=== PATIENT | male | born 1930 | race African-American/Black ===

== ENCOUNTER 2018-05-05 13:47 | Emergency (ER) | payer MEDICARE ==
[~2018-05-05] VITALS: Ht 177.8 cm; Wt 80.5 kg
[2018-05-05 13:52] VITALS: BP 153/72; PULSE 92; TEMP 98.7
[2018-05-05] MEDS ORDERED: VOLTAREN 75 DR75 MG PO (15:55)
[2018-05-05] MEDS ORDERED: PRAVACHOL80 MG PO (15:55)
[2018-05-05] MEDS ORDERED: ACCUPRIL20TAB PO (15:55)
== END 2018-05-05 17:15 | disposition home or self-care (01) ==
LOC: COL.ER 13:47
DX: M84.432A Pathological fracture, left ulna, initial encounter for fracture (principal); E78.5 Hyperlipidemia, unspecified; I10 Essential (primary) hypertension; I25.2 Old myocardial infarction

== ENCOUNTER 2018-07-31 10:58 | Emergency (ER) | payer MEDICARE ==
[~2018-07-31] VITALS: Ht 177.8 cm; Wt 90.9 kg
[~2018-07-31 10:58] MED LIST: ACCUPRIL20TAB PO; CARDURA4 MG PO; LOZOL 2.5M2.5 MG/TAB PO; PRAVACHOL80 MG PO; VOLTAREN 75 DR75 MG PO
[2018-07-31 11:03] VITALS: TEMP 97.1
[2018-07-31 11:32] LABS: BASO % 0.2 % (0.0-2.0); EOS % 0.4 % (0-4.0); GRAN # 7.5 (1.4-6.5); GRAN % 81.7 % (42.2-75.2); LYMPH # 1.1 (1.2-3.4); LYMPH % 11.5 % (20.0-51.0); MEAN CELL VOLUME 87 fl (80.0-100.0); MEAN CORPUSCULAR HEMOGLOBIN 27 pg (27.0-31.0); MEAN CORPUSCULAR HGB CONC 31 g/dl (33.0-37.0); MEAN PLATELET VOLUME 11.5 fl (7.4-10.4); MONO # 0.5 (0.1-0.6); MONO % 5.9 % (1.7-9.3); PLATELET COUNT 232 K/mm3 (130-400); RED BLOOD COUNT 4.14 M/mm3 (4.20-5.60); REDCELL DISTRIBUTION WIDTH-CV 14.7 % (11.5-14.5)
[2018-07-31 11:33] LABS: HEMATOCRIT 35.9 % (42.0-52.0)
[2018-07-31 11:53] LABS: ERYTHROCYTE SEDIMENTATION RATE 101 mm/hr (0-30)
[2018-07-31 11:56] LABS: CALCIUM 8.7 mg/dL (8.4-10.2); CREATININE, serum 1.16 mg/dL (0.66-1.25); POTASSIUM 3.6 mmol/L (3.4-5.0)
[2018-07-31 12:13] LABS: C-REACTIVE PROTEIN 17.5 mg/dL (0.0-0.9)
[2018-07-31] MEDS ORDERED: CLEOCIN HCL300 MG PO (15:24)
[2018-07-31 15:50] VITALS: BP 140/68; PULSE 84
== END 2018-07-31 15:50 | disposition home or self-care (01) ==
LOC: COL.ER 10:58
PROVIDERS: Emergency Medicine
DX: R22.42 Localized swelling, mass and lump, left lower limb (principal); I10 Essential (primary) hypertension; E11.9 Type 2 diabetes mellitus without complications; I25.10 Atherosclerotic heart disease of native coronary artery without angina pectoris; N40.0 Benign prostatic hyperplasia without lower urinary tract symptoms; Z87.891 Personal history of nicotine dependence

== ENCOUNTER 2021-09-05 17:24 | Emergency (ER) | payer MEDICARE ==
[~2021-09-05] VITALS: Ht 177.8 cm; Wt 93.2 kg
[~2021-09-05 17:24] MED LIST changes: +CLEOCIN HCL300 MG PO
[2021-09-05 17:54] VITALS: TEMP 98.8
[2021-09-05 19:02] LABS: COLLECTION METHOD CLEAN CATCH
[2021-09-05 19:13] LABS: PH 6 (5-8); SQUAMOUS EPITHELIAL None Seen /hpf; URINE APPEARANCE Cloudy; URINE BACTERIA None Seen /hpf; URINE BILIRUBIN Negative (NEGATIVE); URINE BLOOD 3+ (NEGATIVE); URINE COLOR Red; URINE GLUCOSE Negative (NEGATIVE); URINE KETONE Negative (NEGATIVE); URINE LEUKOCYTE ESTERASE 2+ (NEGATIVE); URINE NITRATE Negative (NEGATIVE); URINE PROTEIN(semi-quant) 2+ (NEGATIVE); URINE RBC >50 /hpf; URINE UROBILINOGEN Negative (NEGATIVE)
[2021-09-05 19:19] LABS: BASO % 0.2 % (0.0-2.0); EOS # 0.1 K/mm3 (0.0-0.7); GRAN # 6.9 K/mm3 (1.4-6.5); GRAN % 76.7 % (42.2-75.2); HEMATOCRIT 43.3 % (42.0-52.0); HEMOGLOBIN 13.3 g/dl (13.5-18.0); LYMPH # 1.6 K/mm3 (1.2-3.4); LYMPH % 17.6 % (20.0-51.0); MEAN CELL VOLUME 87 fl (80.0-100.0); MEAN CORPUSCULAR HEMOGLOBIN 27 pg (27.0-31.0); MEAN CORPUSCULAR HGB CONC 31 g/dl (33.0-37.0); MEAN PLATELET VOLUME 10.9 fl (7.4-10.4); MONO # 0.4 K/mm3 (0.1-0.6); MONO % 4.2 % (1.7-9.3); PLATELET COUNT 311 K/mm3 (130-400); RED BLOOD COUNT 4.96 M/mm3 (4.20-5.60); REDCELL DISTRIBUTION WIDTH-CV 13.1 % (11.5-14.5)
[2021-09-05 19:33] LABS: ALBUMIN 3.6 gm/dL (3.4-4.8); BILIRUBIN,TOTAL 0.5 mg/dL (0.2-1.2); CALCIUM 9.1 mg/dL (8.4-10.2); CREATININE, serum 1.25 mg/dL (0.72-1.25); POTASSIUM 4.3 mmol/L (3.5-4.5); TOTAL PROTEIN 8.2 gm/dL (6.2-8.1)
[2021-09-05 20:07] VITALS: BP 183/86; PULSE 78
[2021-09-05] MEDS ORDERED: CIPRO 500MG TA500 MG PO (20:22)
== END 2021-09-05 20:07 | disposition home or self-care (01) ==
LOC: COL.ER 17:24
PROVIDERS: Nurse Practitioner
DX: N17.9 Acute kidney failure, unspecified (principal); N39.0 Urinary tract infection, site not specified; R22.42 Localized swelling, mass and lump, left lower limb; I10 Essential (primary) hypertension; I25.10 Atherosclerotic heart disease of native coronary artery without angina pectoris; F03.90 Unspecified dementia, unspecified severity, without behavioral disturbance, psychotic disturbance, mood disturbance, and anxiety; Z79.899 Other long term (current) drug therapy

== ENCOUNTER 2021-09-17 18:45 | Emergency (ER) | payer MEDICARE ==
[~2021-09-17] VITALS: Ht 170.2 cm; Wt 93.2 kg
[~2021-09-17 18:45] MED LIST changes: +CIPRO 500MG TA500 MG PO
[2021-09-17 19:26] VITALS: TEMP 99.2
[2021-09-17 20:05] LABS: BASO % 0.3 % (0.0-2.0); EOS # 0.1 K/mm3 (0.0-0.7); EOS % 0.9 % (0-4.0); GRAN # 5.8 K/mm3 (1.4-6.5); GRAN % 76.1 % (42.2-75.2); HEMATOCRIT 41.9 % (42.0-52.0); LYMPH # 1.2 K/mm3 (1.2-3.4); LYMPH % 15.8 % (20.0-51.0); MEAN CELL VOLUME 87 fl (80.0-100.0); MEAN CORPUSCULAR HEMOGLOBIN 27 pg (27.0-31.0); MEAN CORPUSCULAR HGB CONC 31 g/dl (33.0-37.0); MONO # 0.5 K/mm3 (0.1-0.6); MONO % 6.6 % (1.7-9.3); PLATELET COUNT 283 K/mm3 (130-400); RED BLOOD COUNT 4.83 M/mm3 (4.20-5.60); REDCELL DISTRIBUTION WIDTH-CV 13.2 % (11.5-14.5)
[2021-09-17 20:16] LABS: COLLECTION METHOD CLEAN CATCH
[2021-09-17 20:23] LABS: ALBUMIN 3.2 gm/dL (3.4-4.8); CALCIUM 9.7 mg/dL (8.4-10.2); CREATININE, serum 1.2 mg/dL (0.72-1.25); POTASSIUM 3.9 mmol/L (3.5-4.5)
[2021-09-17 20:34] LABS: MUCOUS Present (NOT PRESENT); PH 6 (5-8); URINE APPEARANCE Hazy (CLEAR/HAZY); URINE BACTERIA Rare (NONE SEEN); URINE BILIRUBIN Negative (NEGATIVE); URINE BLOOD Negative (NEGATIVE); URINE COLOR Yellow (YELLOW); URINE GLUCOSE Negative (NEGATIVE); URINE KETONE Negative (NEGATIVE); URINE LEUKOCYTE ESTERASE 2+ (NEGATIVE); URINE NITRATE Negative (NEGATIVE); URINE PROTEIN(semi-quant) Negative (NEGATIVE); URINE RBC 20-50 /hpf (0-2); URINE UROBILINOGEN Negative (NEGATIVE)
[2021-09-17] MEDS ORDERED: DOXYCYCLINE 10100 MG PO (21:18)
[2021-09-17 21:33] VITALS: BP 162/104; PULSE 83
== END 2021-09-17 21:33 | disposition home or self-care (01) ==
LOC: COL.ER 18:45
PROVIDERS: Nurse Practitioner
DX: S63.501A Unspecified sprain of right wrist, initial encounter (principal); N39.0 Urinary tract infection, site not specified; I10 Essential (primary) hypertension; F03.90 Unspecified dementia, unspecified severity, without behavioral disturbance, psychotic disturbance, mood disturbance, and anxiety; Z79.899 Other long term (current) drug therapy; W19.XXXA Unspecified fall, initial encounter

== ENCOUNTER 2021-10-21 00:22 | Inpatient (IN) | payer MEDICARE ==
[~2021-10-21] VITALS: Ht 177.8 cm; Wt 86.2 kg
[~2021-10-21 00:22] MED LIST changes: +DOXYCYCLINE 10100 MG PO
[2021-10-21 01:03] LABS: GRAN # 5.6 K/mm3 (1.4-6.5); GRAN % 82.2 % (42.2-75.2); HEMATOCRIT 47.3 % (42.0-52.0); HEMOGLOBIN 14.8 g/dl (13.5-18.0); LYMPH # 0.7 K/mm3 (1.2-3.4); LYMPH % 10.1 % (20.0-51.0); MEAN CELL VOLUME 88 fl (80.0-100.0); MEAN CORPUSCULAR HEMOGLOBIN 27 pg (27-31); MEAN CORPUSCULAR HGB CONC 31 g/dl (33.0-37.0); MEAN PLATELET VOLUME 11.9 fl (7.4-10.4); MONO # 0.5 K/mm3 (0.1-0.6); MONO % 7.6 % (1.7-9.3); PLATELET COUNT 176 K/mm3 (130-400)
[2021-10-21 01:12] LABS: INR 1.1 (0.8-3.0); PROTHROMBIN TIME 12.2 SECONDS (9.7-12.8)
[2021-10-21 01:15] LABS: PARTIAL THROMBOPLASTIN TIME 31.3 SECONDS (26.0-37.0)
[2021-10-21 01:20] LABS: ALBUMIN 3.7 gm/dL (3.4-4.8); CREATININE, serum 1.22 mg/dL (0.72-1.25); POTASSIUM 4.2 mmol/L (3.5-4.5)
[2021-10-21 01:30] LABS: BILIRUBIN,TOTAL 1.2 mg/dL (0.2-1.2)
[2021-10-21 01:32] LABS: TROPONIN-I 0.034 ng/mL (0.00-0.033)
[2021-10-21] MEDS ORDERED: NORVASC 5MG5 MG/TAB PO (04:19)
[2021-10-21 05:11] LABS: COLLECTION METHOD CLEAN CATCH
[2021-10-21 05:20] LABS: C-REACTIVE PROTEIN 1.83 mg/dL (0.00-0.50)
[2021-10-21 05:28] LABS: MUCOUS Present (NOT PRESENT); PH 5 (5-8); URINE APPEARANCE Hazy (CLEAR/HAZY); URINE BACTERIA Rare /hpf (NONE SEEN); URINE BILIRUBIN Negative (NEGATIVE); URINE BLOOD 2+ (NEGATIVE); URINE COLOR Yellow (YELLOW); URINE GLUCOSE Negative (NEGATIVE); URINE KETONE Trace (NEGATIVE); URINE LEUKOCYTE ESTERASE Negative (NEGATIVE); URINE NITRATE Negative (NEGATIVE); URINE PROTEIN(semi-quant) 1+ (NEGATIVE); URINE RBC >50 /hpf (0-2); URINE UROBILINOGEN >=4.0 (NEGATIVE)
[2021-10-21 11:00] VITALS: BP 118/67; PULSE 88; TEMP 97.8
--- NOTE | 2021-10-21 12:33 | NUR ---
UPDATED PATIENT'S SON AND DAUGHTER ON CURRENT PATIENT STATUS.
[2021-10-21 12:46] VITALS: BP 118/67; PULSE 88; TEMP 97.8
--- NOTE | 2021-10-21 13:04 | NUR ---
CALLED TO VERIFY CONSULT FOR PATIENT SINCE BEING ADMITTED TO FLOOR.
[2021-10-21 13:42] VITALS: BP 114/68; PULSE 88; TEMP 97.8
--- NOTE | 2021-10-21 15:26 | NUR ---
Sheeter Helper contacted patient's daughter,
--- NOTE | 2021-10-21 15:37 | NUR ---
Glass Furnace Operator contacted patient's daughter, Keiry (ph#[phone]) to discuss discharge planning as patient has dementia and is in isolation for [facility]. Patient is being admitted observation status. Keiry advised that patient lives with her and she is his primary caregiver. Patient sees Dr. Aguilar for primary care and obtains his medications from [facility]. Keiry advised patient will use a cane for ambulation when reminded. Patient has been mostly independent with ADLS but is sometimes incontinent. Keiry stated she had patient brought to ED as he was not able to follow any commands which is not normal for him. Keiry states she can no longer provide the care that patient needs at home and they are wanting patient placed for rehab, but then fci care. 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 Keiry states she has been looking into [facility] and [facility] in [place]. Patient's sister is currently at [facility]. MANSOOR advised that referrals for rehab would be sent locally and that we would also send one to [facility]. MANSOOR gave referral to [facility], [facility], and [facility]. MANSOOR also submitted clinicals to [facility] for prior authorization. MANSOOR collaborated with Hospitalist who requested referral be sent to [facility]. MANSOOR contacted Ynes at [facility] and left referral on her voicemail. MANSOOR attempted to follow up twice with patient's daughter Keiry on Advance Directives and fci care payer source with no sucess. MANSOOR contacted MANSOOR Samuels at Dr. Aguilar's office to request Advance Directives however they have nothing on file. Discharge Plan: pending referrals at [facility] and [facility]. MANSOOR also gave referral to [facility].
--- NOTE | 2021-10-21 16:04 | NUR ---
CALLED CONSULT TO UROLOGY.
--- NOTE | 2021-10-21 16:12 | NUR ---
CALLED CONSULT TO INFECTIOUS DISEASE.
[2021-10-21 19:13] VITALS: BP 136/69; PULSE 87; TEMP 97.8
[2021-10-21 20:28] VITALS: BP 121/58; PULSE 92; TEMP 97.7
--- NOTE | 2021-10-21 21:30 | NUR ---
Patient is sleeping in bed, took some time to wake hip up. Alert to self, disoriented, able to follow simple instructions but unable to answer questions coherently. At , Tele in place, NSR. Able to take medications. Assessment completed. No further needs at this time. Call light within reach.
[2021-10-22] VITALS (7 sets, daily range): BP systolic 123–148; BP diastolic 54–66; PULSE 81–93; TEMP 97.6–101.4
[2021-10-22 05:51] LABS: BASO % 0.2 % (0.0-2.0); GRAN # 3.9 K/mm3 (1.4-6.5); GRAN % 77.4 % (42.2-75.2); HEMOGLOBIN 13.4 g/dl (13.5-18.0); LYMPH # 0.8 K/mm3 (1.2-3.4); LYMPH % 16.4 % (20.0-51.0); MEAN CELL VOLUME 85 fl (80.0-100.0); MEAN CORPUSCULAR HEMOGLOBIN 27 pg (27-31); MEAN CORPUSCULAR HGB CONC 32 g/dl (33.0-37.0); MEAN PLATELET VOLUME 12.3 fl (7.4-10.4); MONO # 0.3 K/mm3 (0.1-0.6); MONO % 5.8 % (1.7-9.3); PLATELET COUNT 177 K/mm3 (130-400); RED BLOOD COUNT 4.97 M/mm3 (4.20-5.60)
--- NOTE | 2021-10-22 05:54 | NUR ---
Patient has had a calm night, continues at RA, NSR, LR started at 75ml/hr. Urine output WNL. Continues with weakness. Has been in bed all night. Shift report will be given to dayshift nurse.
[2021-10-22 06:06] LABS: ALANINE AMINOTRANSFERASE 15 U/L (0-55); ALBUMIN 3.1 gm/dL (3.4-4.8); ALKALINE PHOSPHATASE 92 U/L (40-150); ANION GAP 12 mmol/L (7-16); AST,SGOT 35 U/L (5-34); BILIRUBIN,TOTAL 0.9 mg/dL (0.2-1.2); BLOOD UREA NITROGEN 38 mg/dL (8-26); CALCIUM 8.3 mg/dL (8.4-10.2); CARBON DIOXIDE 23 mmol/L (23-31); CHLORIDE 105 mmol/L (98-107); CREATININE, serum 1.77 mg/dL (0.72-1.25); GLUCOSE 108 mg/dL (70-99); POTASSIUM 4.4 mmol/L (3.5-4.5); SODIUM 140 mmol/L (136-145)
[2021-10-22 06:28] LABS: TROPONIN-I < 0.010 ng/mL (0.00-0.033)
--- NOTE | 2021-10-22 10:28 | NUR ---
PT SITTING UP IN BED EATING BREAKFAST. MORNING MEDICATIONS GIVEN. SHIFT ASSESSMENT COMPLETED. PT DOES NOT FOLLOW COMMANDS OR RESPOND TO MY QUESTIONS. BED ALARMS ON. LR RUNNING AT 75ML/HR. WILL CONTINUE TO MONITOR.
--- NOTE | 2021-10-22 20:00 | NUR ---
Patient is lying in bed, alert but disoriented. No signs of pain. Tele in place, NSR. Catheter mcdonald in place, security device in leg broken, was changed. Clear yellow output. Continues at RA but has some coughing. Patient refused to take night medicaionts. LR running at 75 ml/hr. Assessment completed, no other needs at this time. Bed alarm on.
--- NOTE | 2021-10-22 22:15 | NUR ---
Pt has some fever, Tylenol suppository provided. Patient combative. Now resting.
[2021-10-23] VITALS (7 sets, daily range): BP systolic 97–154; BP diastolic 31–75; PULSE 72–89; TEMP 97.9–100.8
--- NOTE | 2021-10-23 03:00 | NUR ---
Pt removed his IV, change of linens, gown and hygiene provided. Pt combative and punching. Pt was oriented. Now resting.
--- NOTE | 2021-10-23 06:25 | NUR ---
Patient has had an agitated night, right now he is sleeping. Continues at RA, confused, combative for any intervention that requres to move him. Report will be given to day RN.
[2021-10-23 08:15] LABS: CALCIUM 8.3 mg/dL (8.4-10.2); CREATININE, serum 1.18 mg/dL (0.72-1.25)
--- NOTE | 2021-10-23 10:54 | NUR ---
PT RESTING IN BED. MORNING MEDICATIONS GIVEN. SHIFT ASSESSMENT COMPLETED. PT DOES NOT FOLLOW COMMANDS OR RESPOND TO MOST QUESTIONS. REMAINS OF ROOM AIR. LR RUNNING AT 75ML/HR. WILL CONTINUE TO MONITOR.
--- NOTE | 2021-10-23 12:07 | NUR ---
JEROME update: Checked in with referrals for status. [facility] can not take client unitl he is post positive CV test at day ten. Same for [facility] admission. Bob Shrestha in [place] did not answer, jerome left message to call back for patient return status. Awating answer from [place].
--- NOTE | 2021-10-23 20:30 | NUR ---
Patient is reting in bed, food intact. Assisted to feed him, ate 75% including nutritional supplement. Took his medications. Fever. Tylenol provided. Contiuous at RA, some sporadic cough. Tele in place, NSR. LR running at 50ml/hr. Assessment completed. No further needs at this time. Bed alarm on.
[2021-10-24 04:49] VITALS: BP 126/42; PULSE 76; TEMP 97.8
--- NOTE | 2021-10-24 05:54 | NUR ---
Pt has been cooperative taking his medications and receiving care. Had an episode of fever, Tylenol provided. Continues with LR 50 ML/HR. Has been resting and sleeping with not problems. Bed alarm on. Report will be given do day RN.
[2021-10-24 07:59] VITALS: BP 141/49; PULSE 78; TEMP 98.9
--- NOTE | 2021-10-24 09:55 | NUR ---
PT RESTING IN BED. MORNING MEDICATIONS GIVEN. SHIFT ASSESSMENT COMPLETED. PT REMAINS ON OXYGEN. PEREZ CATHETER DRAINING WELL. MITS IN PLACE. LR RUNNING AT 50ML/HR. PT DOES NOT RESPOND TO QUESTIONS OR FOLLOW COMMANDS. PLEASANT MOOD. WILL CONTINUE TO MONITOR.
[2021-10-24 11:56] VITALS: BP 96/71; PULSE 83; TEMP 97.9
[2021-10-24 15:59] VITALS: BP 138/54; PULSE 82; TEMP 99.2
--- NOTE | 2021-10-24 19:57 | NUR ---
Patient laying in bed, awake and alert. Patient not orientd. Not following commands or answering questions. Patient on room air. No apparent distress noted. LR running at 50ml/hr per MAR. Mits on both hands. Patient occasionaly trying to pull off mits. Patient refused evening meds. Patient not opening his mouth and pushing away medications. Patient refused to be repositioned. Call light in reach. Bed alarms on. Will continue to monitor.
[2021-10-24 20:20] VITALS: BP 155/82; PULSE 97; TEMP 101.7
[2021-10-24 23:45] VITALS: BP 145/67; PULSE 93; TEMP 100.8
[2021-10-25 04:08] VITALS: BP 143/89; PULSE 87; TEMP 100.4
--- NOTE | 2021-10-25 04:13 | NUR ---
Patient had high temp of 101.7F and 100.8 F last night. PRN Tylenol suppository given around 9pm and 3 am this morning. Temp down to 100.4 F around 4am. Patient favors to sleep on his left side. Repositioned patient frequently, but patient keeps turning to his left side with his body side ways and his head on the edge of bed. Bed on the lowest setting with bed alarms on. Fall precaution maintained. Will continue to monitor.
[2021-10-25 07:26] LABS: CALCIUM 8.2 mg/dL (8.4-10.2); CREATININE, serum 1.09 mg/dL (0.72-1.25); MAGNESIUM 1.9 mg/dL (1.6-2.6)
[2021-10-25 08:15] VITALS: BP 147/49; PULSE 83; TEMP 100.4; TEMP 98.3
--- NOTE | 2021-10-25 10:39 | NUR ---
Shift assessment performed. Scheduled medications refused. Patient was not willing to open up mouth. Catheter in place. Securement device in use, no kinks in tubing. No s/s of pain, discomfort, SOA, or further needs at this time. VSS. Patient drowsy and confused. Call light in reach. Fall percuations in place.
[2021-10-25 11:40] VITALS: BP 152/67; PULSE 88; TEMP 101.1
--- NOTE | 2021-10-25 14:50 | NUR ---
The patient spiked a fever today and was upgraded to inpatient status. SW notified and faxed updates to [facility] and [facility].
[2021-10-25 15:22] VITALS: BP 145/66; PULSE 57; TEMP 101.3
[2021-10-25 17:58] VITALS: TEMP 100.7
--- NOTE | 2021-10-25 17:59 | NUR ---
Patient has had an ok day. Tylenol suppository given this shift for temp of 101.3. PO intake has been inadequate this shift. Patient refuses to open mouth/accept food. All other VSS. Patient has been sleeping a majority of the day and is not oriented. Call light in reach. Fall percautions in place.
[2021-10-25 20:48] VITALS: BP 131/71; PULSE 80; TEMP 98.1
--- NOTE | 2021-10-25 23:09 | NUR ---
Patient laying in bed, drowsy and confused. Patient not following commands or answering questions. Patient not opening mouth for medications. LR currently running at 50ml/hr via left forearm IV site. Hodgson catheter patent and draning well. Patient has mits on. Call light in reach. Bed alarms on. Fall precaution maintained. Will continue to monitor.
[2021-10-26] VITALS (8 sets, daily range): BP systolic 113–154; BP diastolic 56–81; PULSE 70–87; TEMP 97.7–102.8
[2021-10-26 08:19] LABS: GRAN # 6.7 K/mm3 (1.4-6.5); HEMATOCRIT 38.2 % (42.0-52.0); HEMOGLOBIN 11.9 g/dl (13.5-18.0); LYMPH # 0.8 K/mm3 (1.2-3.4); LYMPH % 9.7 % (20.0-51.0); MEAN CELL VOLUME 86 fl (80.0-100.0); MEAN CORPUSCULAR HEMOGLOBIN 27 pg (27-31); MEAN CORPUSCULAR HGB CONC 31 g/dl (33.0-37.0); MEAN PLATELET VOLUME 11.6 fl (7.4-10.4); MONO # 0.3 K/mm3 (0.1-0.6); PLATELET COUNT 189 K/mm3 (130-400); RED BLOOD COUNT 4.42 M/mm3 (4.20-5.60); REDCELL DISTRIBUTION WIDTH-CV 13.7 % (11.5-14.5)
[2021-10-26 08:45] LABS: CALCIUM 8.5 mg/dL (8.4-10.2); CREATININE, serum 1.11 mg/dL (0.72-1.25); POTASSIUM 4.1 mmol/L (3.5-4.5)
--- NOTE | 2021-10-26 09:50 | NUR ---
Radha, at [facility], reports that they can continue to follow the patient, but would need to see some more updates closer to discharge and his post COVID status, due to his PNA and behaviors. They want to make sure they can manage his care.
--- NOTE | 2021-10-26 11:18 | NUR ---
Scheduled medications given. Shift assessment performed. Patient currently requiring 2L of O2 via nasal cannula. Hodgson catheter in place. Securement device in use, no kinks in tubing. HELPER STEEL FABRICATION reported to this RN that patient had a temp of 102.8. Blankets taken off of patient, ice packs placed in groin and axillary regions, tylenol suppository given. At temp recheck, temp had decreased to 101.2. Will continue to monitor. All other VSS. Patient alert, but very confused and is not able to follow commands. No s/s of pain, discomfort, SOA, or further needs at this time. Call light in reach. Fall percautions in place.
--- NOTE | 2021-10-26 13:21 | NUR ---
MANSOOR faxed updates to [facility] and [facility]. Darren RICHARDS is full at this time. Graeme, at [facility], reports that they can submit for auth to the patient's insurance on inpatient day three. MANSOOR attempted to contact the patient's daughter, Keiry, to update. MANSOOR left her a voicemail. *Discharge plan: SNF*
--- NOTE | 2021-10-26 17:57 | NUR ---
Patient has had an ok day. Currently requiring 2L of O2 via nasal cannula. Temp broke and is now reading 98.6. Patient more alert than earlier in shift. Continues to not be oriented. Patient denies any pain, discomfort, SOA, or further needs at this time. Call light in reach. VSS. Fall percautions in place.
--- NOTE | 2021-10-26 20:30 | NUR ---
Patient is resting in bed, resting in his left side, alert and oriented to self. Tele pin place NSR, 2L O2 NC. Cath mcdonald in place. Mittens in hands. Assessment completed, no other needs at this time, bed alarm on.
[2021-10-27 03:53] VITALS: BP 132/68; PULSE 74; TEMP 98.2
--- NOTE | 2021-10-27 06:36 | NUR ---
Patient was cooperative and not combative this night. He continues receiving LR at 50ml/hr and antibiotics. Report will be given to day RN.
[2021-10-27 07:23] VITALS: BP 128/53; PULSE 68; TEMP 98.4
[2021-10-27 09:09] LABS: BASO % 0.1 % (0.0-2.0); GRAN # 8.4 K/mm3 (1.4-6.5); GRAN % 87.3 % (42.2-75.2); HEMATOCRIT 38.7 % (42.0-52.0); HEMOGLOBIN 11.9 g/dl (13.5-18.0); LYMPH # 0.8 K/mm3 (1.2-3.4); MEAN CELL VOLUME 87 fl (80.0-100.0); MEAN CORPUSCULAR HEMOGLOBIN 27 pg (27-31); MEAN CORPUSCULAR HGB CONC 31 g/dl (33.0-37.0); MEAN PLATELET VOLUME 11.3 fl (7.4-10.4); MONO # 0.4 K/mm3 (0.1-0.6); MONO % 4.1 % (1.7-9.3); PLATELET COUNT 158 K/mm3 (130-400); RED BLOOD COUNT 4.45 M/mm3 (4.20-5.60); REDCELL DISTRIBUTION WIDTH-CV 13.9 % (11.5-14.5)
[2021-10-27 09:34] LABS: CALCIUM 8.4 mg/dL (8.4-10.2); CREATININE, serum 1.19 mg/dL (0.72-1.25); POTASSIUM 4.2 mmol/L (3.5-4.5)
[2021-10-27 11:03] VITALS: BP 119/61; PULSE 71; TEMP 99.2
--- NOTE | 2021-10-27 11:34 | NUR ---
MANSOOR staffed with the PA. The patient may be able to discharge in the next 24-48 hours. SW notified and faxed updates to [facility] and [facility]. The patient's records were submitted to [facility] for auth. MANSOOR contacted the patient's daughter, Keiry, and updated her on the above. Keiry is agreeable to the patient going to [facility]. *Discharge plan: SNF, awaiting insurance auth*
[2021-10-27 15:31] VITALS: BP 106/53; PULSE 74; TEMP 99
--- NOTE | 2021-10-27 18:00 | NUR ---
Shift assessment performed. Scheduled medications given. Patient is alert today, but is only oriented to self. VSS. Currenlty not requiring any O2. Patient had a good appetite today and ate 100% of his lunch and 50% of his supper. Hodgson catheter in place. No kinks in tubing. Urine is sharri in color with sediment present. Provider aware. No s/s of pain, discomfort, SOA, or further needs at this time. Call light in reach. Fall percautions in place.
--- NOTE | 2021-10-27 18:00 | NUR ---
Scheduled medications given. Shift assessment perfomre.
[2021-10-27 20:27] VITALS: BP 162/77; PULSE 78; TEMP 98.3
--- NOTE | 2021-10-27 22:00 | NUR ---
Patient is resting in bed, alert but disoriented. VSS, reciving LR 50ML/HR. Telemetry in place NSR. RA no SOB. Assessment completed, medications provided. Hygiene provided, since linens dirty with BM. No other needs at this time. Call light within reach.
[2021-10-27 23:47] VITALS: BP 152/80; PULSE 38; TEMP 98.5
[2021-10-28] VITALS (7 sets, daily range): BP systolic 112–157; BP diastolic 47–96; PULSE 58–97; TEMP 97.6–98.4
--- NOTE | 2021-10-28 06:22 | NUR ---
Pt had an incontineng BM at night, hygiene and change of linene and gown provided. Pt continuous at RA. No other issues along the night. Report will be given to day RN.
--- NOTE | 2021-10-28 07:49 | NUR ---
REPORT RECEIVED FROM TIMOTHY RIBERA AT THIS TIME.PT DENIES ANY NEEDS A THIS TIME
--- NOTE | 2021-10-28 13:22 | NUR ---
A [facility] member service representative left this SW a voicemail. The rep reports that they approved a SNF stay at [facility] for three days, from 10/27/21-10/29/21. Auth ID#[id number]. Ref#[id number]. MANSOOR notified and provided this information to Graeme at [facility]. [facility] is still working with the [facility] to determine when and if they can take the patient before the 10 days of isolation. MANSOOR staffed with the PA. The patient was started on Remdesvir today and not ready to discharge yet. MANSOOR faxed updates to [facility].
--- NOTE | 2021-10-28 21:30 | NUR ---
Patient is resting in bed, alert but not oriented. VSS, at RA. Telemetry in place, NSR, Assessment completed, medications provided, no further needs at this time, bed alarm on.
[2021-10-29 03:29] VITALS: BP 130/61; PULSE 66; TEMP 97.8
--- NOTE | 2021-10-29 06:16 | NUR ---
PT has had a calm night, continues at room air, had lond periods able to sleep. Incontinent BM. Hygiene provided. Urine in catheter mcdonald continues sharri with sediment. No other needs at this time. Report will be given to day RN.
[2021-10-29 07:54] VITALS: BP 139/65; TEMP 97.8
[2021-10-29 07:55] LABS: GRAN # 4.8 K/mm3 (1.4-6.5); GRAN % 78.5 % (42.2-75.2); HEMATOCRIT 34.6 % (42.0-52.0); HEMOGLOBIN 10.9 g/dl (13.5-18.0); LYMPH # 0.9 K/mm3 (1.2-3.4); LYMPH % 14.1 % (20.0-51.0); MEAN CELL VOLUME 86 fl (80.0-100.0); MEAN CORPUSCULAR HEMOGLOBIN 27 pg (27-31); MEAN CORPUSCULAR HGB CONC 32 g/dl (33.0-37.0); MEAN PLATELET VOLUME 11.5 fl (7.4-10.4); MONO # 0.4 K/mm3 (0.1-0.6); MONO % 6.7 % (1.7-9.3); PLATELET COUNT 269 K/mm3 (130-400); RED BLOOD COUNT 4.04 M/mm3 (4.20-5.60); REDCELL DISTRIBUTION WIDTH-CV 13.8 % (11.5-14.5)
[2021-10-29 08:14] LABS: ALBUMIN 2.3 gm/dL (3.4-4.8); BILIRUBIN,TOTAL 0.5 mg/dL (0.2-1.2); CALCIUM 8.2 mg/dL (8.4-10.2); CREATININE, serum 1.12 mg/dL (0.72-1.25); POTASSIUM 3.7 mmol/L (3.5-4.5); TOTAL PROTEIN 6.3 gm/dL (6.2-8.1)
[2021-10-29 11:52] VITALS: BP 141/66; PULSE 50; TEMP 96.9
[2021-10-29] MEDS ORDERED: DECADRON6 MG PO (12:56)
[2021-10-29] MEDS ORDERED: ASPIRIN E.C. 8181 MG PO (12:57)
[2021-10-29] MEDS ORDERED: NORVASC 5MG5 MG/TAB PO (12:57)
[2021-10-29] MEDS ORDERED: TYLENOL 325MG325 MG PO (12:57)
[2021-10-29] MEDS ORDERED: PRAVACHOL80 MG PO (12:59)
[2021-10-29] MEDS ORDERED: LOPRESSOR 225 MG/TAB PO (12:59)
[2021-10-29] MEDS ORDERED: CARDURA4 MG PO (12:59)
[2021-10-29] MEDS ORDERED: PROVENTIL0.09 MG/A1 IH (13:00)
[2021-10-29] MEDS ORDERED: AMOXICILLIN 8751 TAB PO (13:01)
--- NOTE | 2021-10-29 16:29 | NUR ---
Graeme, at [facility], reports that they are able to take the patient today. MANSOOR notified the clinical team. The patient's RN informed MANSOOR that the patient would not be able to sit up in a wheelchair. MANSOOR notified Graeme. Graeme reports that if the patient cannot go by wheelchair, then he would have to go by EMS. MANSOOR attempted to contact the patient's daughter, Keiry, multiple times to update. MANSOOR left her a voicemail. MANSOOR was able to get in contact with the patient's son, Jose. MANSOOR updated him on the above. Jose is in agreement to the plan. He reports that he will try and get ahold of Keiry and have her contact MANSOOR. MANSOOR read the IM and EMS transfer consent form to the patient's son, Jose. Jose verbalized understanding and gave SW approval to sign the forms on his behalf. The patient's daughter, Keiry, returned MANSOOR's phone call. Keiry is also agreeable to the plan. MANSOOR reviewed the IM and EMS Consent Forms with Keiry as well. Keiry verbalized understanding and gave SW approval to sign the forms on his behalf. The patient discharged today, 10/29, to [facility] for a skilled stay. Transportation was provided by [facility] at 1515. MANSOOR informed Graeme at [facility], the patient's RN, the patient's son and daughter of the time. No additional needs at this time.
--- NOTE | 2021-10-29 17:30 | NUR ---
PT DISCHARGE TO [facility] ON STABLE CONDITION. D/C INSTRUCTIONS SEND WITH EMS STAFF. REPORT CALLED TO LUCIE RIBERA AT [facility] AT THIS TIME
== END 2021-10-29 15:30 | DRG 177 ==
LOC: COL.ER 00:22 → MEDICAL 04:18
PROVIDERS: Emergency Medicine; Nurse Practitioner Family; Physician Assistant; ADMIT Internal Medicine
PROC: XW033E5 Introduction of Remdesivir Anti-infective into Peripheral Vein, Percutaneous Approach, New Technology Group 5 (ICD-10-PCS; principal; 2021-10-28)
DX: U07.1 COVID-19 (principal); J12.82 Pneumonia due to coronavirus disease 2019; J96.01 Acute respiratory failure with hypoxia; G93.40 Encephalopathy, unspecified; E87.2 Acidosis; N17.9 Acute kidney failure, unspecified; G95.89 Other specified diseases of spinal cord; I10 Essential (primary) hypertension; I25.10 Atherosclerotic heart disease of native coronary artery without angina pectoris; F03.90 Unspecified dementia, unspecified severity, without behavioral disturbance, psychotic disturbance, mood disturbance, and anxiety; N40.0 Benign prostatic hyperplasia without lower urinary tract symptoms; E78.5 Hyperlipidemia, unspecified; R77.8 Other specified abnormalities of plasma proteins; M48.02 Spinal stenosis, cervical region; Z79.82 Long term (current) use of aspirin
CPT/HCPCS: 99232-AI; 99233-AI; 99239; G0378; J0248; J0696; J1650; J2543; J7050; J7120; J8540

== ENCOUNTER 2022-02-11 09:22 | Inpatient (IN) | payer MEDICARE ==
[~2022-02-11] VITALS: Ht 170.2 cm; Wt 86.5 kg
[~2022-02-11 09:22] MED LIST changes: +AMOXICILLIN 8751 TAB PO; +ASPIRIN E.C. 8181 MG PO; +DECADRON6 MG PO; +LOPRESSOR 225 MG/TAB PO; +NORVASC 5MG5 MG/TAB PO; +PROVENTIL0.09 MG/A1 IH; +TYLENOL 325MG325 MG PO
[2022-02-11 09:56] LABS: BASO % 0.2 % (0.0-2.0); EOS % 0.4 % (0.0-4.0); GRAN # 8.5 K/mm3 (1.4-6.5); GRAN % 81.4 % (42.2-75.2); HEMATOCRIT 41.7 % (42.0-52.0); HEMOGLOBIN 12.9 g/dl (13.5-18.0); LYMPH # 1.1 K/mm3 (1.2-3.4); LYMPH % 10.4 % (20.0-51.0); MEAN CELL VOLUME 88 fl (80.0-100.0); MEAN CORPUSCULAR HEMOGLOBIN 27 pg (27-31); MEAN CORPUSCULAR HGB CONC 31 g/dl (33.0-37.0); MEAN PLATELET VOLUME 13.7 fl (7.4-10.4); MONO # 0.8 K/mm3 (0.1-0.6); MONO % 7.2 % (1.7-9.3); PLATELET COUNT 206 K/mm3 (130-400); RED BLOOD COUNT 4.73 M/mm3 (4.20-5.60)
[2022-02-11 10:10] LABS: ALANINE AMINOTRANSFERASE 24 U/L (0-55); ALBUMIN 2.9 gm/dL (3.4-4.8); ALKALINE PHOSPHATASE 100 U/L (40-150); ANION GAP 12 mmol/L (7-16); AST,SGOT 16 U/L (5-34); BILIRUBIN,TOTAL 0.7 mg/dL (0.2-1.2); BLOOD UREA NITROGEN 49 mg/dL (8-26); CALCIUM 9.1 mg/dL (8.4-10.2); CARBON DIOXIDE 22 mmol/L (23-31); CHLORIDE 115 mmol/L (98-107); CREATININE, serum 1.37 mg/dL (0.72-1.25); GLUCOSE 304 mg/dL (70-99); POTASSIUM 4.3 mmol/L (3.5-4.5); SODIUM 149 mmol/L (136-145); TOTAL PROTEIN 7.3 gm/dL (6.2-8.1)
[2022-02-11 10:19] LABS: COLLECTION METHOD IN
[2022-02-11 10:19] LABS: TROPONIN-I < 0.010 ng/mL (0.00-0.033)
[2022-02-11 10:25] LABS: MUCOUS Present (NOT PRESENT); PH 5 (5-8); SQUAMOUS EPITHELIAL 0-2 /hpf (0-10); URINE APPEARANCE Hazy (CLEAR/HAZY); URINE BACTERIA None Seen /hpf (NONE SEEN); URINE BILIRUBIN Negative (NEGATIVE); URINE BLOOD Negative (NEGATIVE); URINE COLOR Yellow (YELLOW); URINE GLUCOSE Negative (NEGATIVE); URINE KETONE Negative (NEGATIVE); URINE LEUKOCYTE ESTERASE Negative (NEGATIVE); URINE NITRATE Negative (NEGATIVE); URINE PROTEIN(semi-quant) Negative (NEGATIVE)
[2022-02-11] MEDS ORDERED: ARICEPT10 MG PO (13:53)
[2022-02-11] MEDS ORDERED: EFFEXOR XR75 MG/CAP PO (13:53)
[2022-02-11 14:09] VITALS: BP 147/62; PULSE 77; TEMP 98
--- NOTE | 2022-02-11 14:32 | NUR ---
PT ADMITTED TO UNIT. UNABLE TO COMPLETE INTAKE DUE TO PT BEING UNRESPONSIVE. PHYSICAL ASSESSMENT COMPLETED. PEREZ DRAINING WELL. NS INFUSING AT 50ML/HR. PT CURRENTLY ON 1L VIA NC. PT ABLE TO PULL AGAINST ME AND GRUNTS TO STIMULI. PT UNABLE TO ANSWER QUESTIONS OR FOLLOW COMMANDS. WILL CONTINUE TO MONITOR.
--- NOTE | 2022-02-11 14:56 | NUR ---
Call made to patient's daughter, Keiry, and son, Jose. Gave my contact information and verified that Keiry is the patient's DPOA. Keiry reports that her father had a stroke in December and also has dementia following a TBI years ago. She states he is close to baseline. Throughout out conversation, Keiry mentions that she is going to talk about code status with her brothers and that they are wondering if their dad is getting to the point where letting things take their natural course would be best but that they would like to give him a fighting chance. I told her that I will support her in whatever they decide and be here to help them along the way. Keiry's current understanding of the plan is a MRI and IV ABx. She agreed to talk with me again on Monday.
[2022-02-11 15:34] VITALS: BP 161/50; PULSE 70; TEMP 97.3
[2022-02-11] MEDS ORDERED: TRANSDERM-0.5 MG/21 TD (16:55)
[2022-02-11] MEDS ORDERED: PLAVIX 75MG TAB75 MG PO (16:55)
[2022-02-11] MEDS ORDERED: ISOSOURCE 1.51000 M1 (16:57)
[2022-02-11] MEDS ORDERED: LIPITOR 80MG80 MG PO (16:59)
[2022-02-11] MEDS ORDERED: CARDURA4 MG PO (17:00)
[2022-02-11] MEDS ORDERED: TYLEINFANT PO (17:02)
[2022-02-11] MEDS ORDERED: MIRALAX PA17 GM/Dose PO (17:03)
[2022-02-11 19:55] VITALS: BP 155/86; PULSE 87; TEMP 98.1
--- NOTE | 2022-02-11 20:00 | NUR ---
Patient is resting in bed with 2 family members at the bedside. He moves his eyes while talking to him but unable to follow comands or follow a conversation. Telemetry in place, NSR. Receifing NS at 50 ml/hr and antibiotics. Catheter mcdonald in place, yellow with red sediment output. Feeding tube clamped with food residual noticed. Assessment completed. Repositioned. No oher needs at this time. Bed alarm on. Continue monitoring.
[2022-02-12] VITALS (7 sets, daily range): BP systolic 104–136; BP diastolic 55–73; PULSE 90–107; TEMP 98–99.3
[2022-02-12 06:15] LABS: BASO % 0.2 % (0.0-2.0); EOS % 0.3 % (0.0-4.0); GRAN # 11.3 K/mm3 (1.4-6.5); GRAN % 87.2 % (42.2-75.2); HEMATOCRIT 40.7 % (42.0-52.0); HEMOGLOBIN 12.3 g/dl (13.5-18.0); LYMPH % 7.4 % (20.0-51.0); MEAN CELL VOLUME 90 fl (80.0-100.0); MEAN CORPUSCULAR HEMOGLOBIN 27 pg (27-31); MEAN CORPUSCULAR HGB CONC 30 g/dl (33.0-37.0); MEAN PLATELET VOLUME 13.4 fl (7.4-10.4); MONO # 0.6 K/mm3 (0.1-0.6); MONO % 4.3 % (1.7-9.3); PLATELET COUNT 203 K/mm3 (130-400); RED BLOOD COUNT 4.51 M/mm3 (4.20-5.60); REDCELL DISTRIBUTION WIDTH-CV 14.1 % (11.5-14.5)
[2022-02-12 06:29] LABS: ALBUMIN 2.6 gm/dL (3.4-4.8); CALCIUM 9.1 mg/dL (8.4-10.2); CHOLESTEROL RISK RATIO 11.3; CREATININE, serum 1.14 mg/dL (0.72-1.25); MAGNESIUM 2.3 mg/dL (1.6-2.6); PHOSPHOROUS 4.7 mg/dL (2.3-4.7)
--- NOTE | 2022-02-12 06:32 | NUR ---
Patient had an uneventful night. No changes in his neurological status. VSS. Report will be given to day RN.
[2022-02-12 10:39] LABS: MAGNESIUM 2.2 mg/dL (1.6-2.6); PHOSPHOROUS 4.7 mg/dL (2.3-4.7)
--- NOTE | 2022-02-12 10:59 | NUR ---
Patient laying in bed upon entering the room. Patient is unresponsive, does not open eyes, does not follow directions, does not speak. Patient moves extremeties when they are touched and will try to resist movement. Patient is on seizure precautions, pads in place. Bed alarm is on for safety and call light is within reach. Patient is Q2h turns. PEG tube working well, continuous tube feedings to start once formula is provided.
--- NOTE | 2022-02-12 14:05 | NUR ---
Tube feedings initiated per orders. Patient remains asleep, and not replying or opening eyes. Does move extremeties when touched.
--- NOTE | 2022-02-12 16:29 | NUR ---
Application Technician met with patient for intake assessment/discharge planning. Patient is drowsy and does not participate in the discussion. His adult daughter Keiry Tee ([phone]) is at bedside. Keiry informs she is patient DPOA but does not have paperwork with her, but can get a copy to place in patient's medical record. She informs of physician's plan to keep patient through Monday for an MRI to determine discharge planning. She is hopeful he will return to [facility] where he currently resides in [place]. She states he is currently seeing Dr. Mason Victor, but his primary care physician prior to placement is Dr. Ananth Aguilar. Daughter expresses no needs/concerns about obtaining patient's healthcare services as current healthcare coverage is adequate, however she may need assistance should patient be recommended for skilled care or rehab services. She has notified the RN of her concern for his current feeding plan, stating he is inactive. She expresses no other needs at this time. *Discharge plan: Return to [facility] where patient currently resides.*
--- NOTE | 2022-02-12 20:30 | NUR ---
Patient is sleeping in bed, open his eyes while saying his name. Unable to follow comands. Telemetry in place. NSR. Feeding in progress 25ml/hr. 3L O2 NC. Receiving NS 50 ML/HR. Catheter mcdonald in place with yellow with sediment output. Seizure prec in place. Assessment completed. Meds prvided via PEG tube. No other needs at this time. Bed alarm on. Continue monitoring.
--- NOTE | 2022-02-12 22:16 | NUR ---
Increased feeding rate from 25 to 50 ml per hr. Pt tolerating well.
[2022-02-13 03:51] VITALS: BP 131/56; PULSE 90; TEMP 98.4
--- NOTE | 2022-02-13 06:05 | NUR ---
Patient has been stable along the night. He is tolerating the feeding. Just now it was increased to 78ml/hr. Continue receiving fluids and antibiotics. VSS. Report will be given to day RN.
[2022-02-13 06:24] LABS: BASO % 0.2 % (0.0-2.0); EOS % 0.3 % (0.0-4.0); GRAN # 10.2 K/mm3 (1.4-6.5); GRAN % 85.8 % (42.2-75.2); LYMPH # 1.1 K/mm3 (1.2-3.4); LYMPH % 9.1 % (20.0-51.0); MEAN CELL VOLUME 90 fl (80.0-100.0); MEAN CORPUSCULAR HEMOGLOBIN 27 pg (27-31); MEAN CORPUSCULAR HGB CONC 30 g/dl (33.0-37.0); MONO # 0.5 K/mm3 (0.1-0.6); MONO % 4.3 % (1.7-9.3); PLATELET COUNT 200 K/mm3 (130-400); RED BLOOD COUNT 4.04 M/mm3 (4.20-5.60); REDCELL DISTRIBUTION WIDTH-CV 14.3 % (11.5-14.5)
[2022-02-13 06:36] LABS: ALBUMIN 2.2 gm/dL (3.4-4.8); CALCIUM 8.5 mg/dL (8.4-10.2); CREATININE, serum 1.27 mg/dL (0.72-1.25); MAGNESIUM 2.4 mg/dL (1.6-2.6); PHOSPHOROUS 2.6 mg/dL (2.3-4.7); POTASSIUM 3.6 mmol/L (3.5-4.5)
[2022-02-13 06:45] LABS: HEMATOCRIT 36.4 % (42.0-52.0)
[2022-02-13 07:29] VITALS: BP 120/61; PULSE 104; TEMP 100.1
--- NOTE | 2022-02-13 09:13 | NUR ---
Patient laying in bed, opening eyes to speech. Not speaking or very responsive. Resistance when attempting to move extremeties. HOB at 45. Tube feedings paused until 1700. All morning medications administered IV, SQ, or through PEG.
[2022-02-13 11:45] VITALS: BP 138/82; PULSE 99; TEMP 99.1
[2022-02-13 16:33] VITALS: BP 142/77; PULSE 100; TEMP 98.4
--- NOTE | 2022-02-13 18:56 | NUR ---
Tubed feedings started @1730 and running @78mL/hr. Patient tolerating them well. Patient opening eyes when spoken to.
[2022-02-13 20:39] VITALS: BP 107/81; PULSE 93; TEMP 99
--- NOTE | 2022-02-13 21:40 | NUR ---
Patient assessed around 193. Awake, moves eyes, but not answering verbally. No outward s/sx of pain or discomfort, such as facial grimacing, moaning, etc. Does hit at staff with cares. Peripheral INT to right forearm, IV fluids running to right wrist IV site, along with ABX per orders. On oxygen at 3 L/min via NC. Coarse crackles throughout. Moist cough, unable to produce sputum. HRR. Telemetry in place. BSAx4. Abdomen soft and non-tender. Tube feeding at 7 cm walker. Has continuous feed and water flushes per orders. Tolerating well. 10 ml residual. Indwelling mcdonald catheter patent, with hematuria. Day shift reported that it had not been blood tinged earlier. Called BRIAN Hernandez and updated on hematuria, not clots at this time, will continue to monitor. Heparin is already on hold for LP tomorrow. No edema. In bed with call light within reach. Bed alarm on.
[2022-02-13 23:38] VITALS: BP 120/82; PULSE 85; TEMP 98.1
[2022-02-14 03:32] VITALS: BP 148/97; PULSE 92; TEMP 97.5
[2022-02-14 05:41] VITALS: BP 150/64; PULSE 91
--- NOTE | 2022-02-14 05:49 | NUR ---
Patient had large, hard BM during the night. Skin tear/shearing noted to right buttock. Cleaned and put mepilex to area. Tube feedings continue per orders with water flushes. IV fluids continue per orders. Recieves IV ABX per orders. In bed with call light within reach. Bed alarm on.
[2022-02-14 07:14] LABS: BASO % 0.1 % (0.0-2.0); EOS # 0.1 K/mm3 (0.0-0.7); EOS % 0.6 % (0.0-4.0); GRAN # 8.3 K/mm3 (1.4-6.5); GRAN % 86.1 % (42.2-75.2); HEMOGLOBIN 11.3 g/dl (13.5-18.0); LYMPH # 0.7 K/mm3 (1.2-3.4); LYMPH % 7.2 % (20.0-51.0); MEAN CELL VOLUME 89 fl (80.0-100.0); MEAN CORPUSCULAR HEMOGLOBIN 27 pg (27-31); MEAN CORPUSCULAR HGB CONC 31 g/dl (33.0-37.0); MEAN PLATELET VOLUME 13.7 fl (7.4-10.4); MONO # 0.5 K/mm3 (0.1-0.6); MONO % 5.6 % (1.7-9.3); PLATELET COUNT 200 K/mm3 (130-400); RED BLOOD COUNT 4.16 M/mm3 (4.20-5.60); REDCELL DISTRIBUTION WIDTH-CV 14.3 % (11.5-14.5)
[2022-02-14 07:30] LABS: ALBUMIN 2.1 gm/dL (3.4-4.8); BILIRUBIN,TOTAL 0.4 mg/dL (0.2-1.2); CALCIUM 8.4 mg/dL (8.4-10.2); CREATININE, serum 1.14 mg/dL (0.72-1.25); MAGNESIUM 2.3 mg/dL (1.6-2.6); PHOSPHOROUS 2.7 mg/dL (2.3-4.7); POTASSIUM 3.6 mmol/L (3.5-4.5); TOTAL PROTEIN 6.5 gm/dL (6.2-8.1)
[2022-02-14 07:39] VITALS: BP 152/59; PULSE 92; TEMP 97.6
[2022-02-14 11:54] VITALS: BP 174/85; PULSE 93; TEMP 98
--- NOTE | 2022-02-14 14:13 | NUR ---
PT RESTING IN BED. MEDICATIONS GIVEN PER eMAR. PT NON VERBAL, DOES NOT FOLLOW COMMANDS, RETRACTS HIS ARMS WHEN WE TRY TO MOVE THEM. IVF INFUSING. CURRENTLY ON 3L VIA NC. WILL CONTINUE TO MONITOR.
--- NOTE | 2022-02-14 14:24 | NUR ---
Call made to daughter, Keiry. She does not feel a lumbar puncture is appropriate for her father. She agrees with the current treatment plan of IV ABx and antivirals. We discussed his return to [facility] and she wonders if he goes skilled, if he could stay in his current room. I told her I would update SW and they would be able to check on that with [facility]. Updated care team as well.
--- NOTE | 2022-02-14 14:52 | NUR ---
Conveyor System Operator faxed clinical updates to Graeme at [facility]. PT is recommending return to [facility]. SW contacted Graeme to provide verbal update.
[2022-02-14 16:00] VITALS: BP 153/65; PULSE 84; TEMP 97.8
[2022-02-14 20:04] VITALS: BP 148/76; PULSE 83; TEMP 98.6
--- NOTE | 2022-02-14 22:30 | NUR ---
Patient assessed around 1999. Family at bedside and all questions answered. Peripheral INT to right forearm, IV fluids running to IV to right wrist. On oxygen at 1.5 L/min via NC. LS fine creckles. Has cough, moist. Unable to produce sputum. HRR. Telemetry in place. BSAx4. PEG tube at 7 cm walker. 15 ml for residual, moser in color. Continuous tube feeding with flushes per orders. Indwelling mcdonald catheter with hematuria. Around 2114, patient did have incontince of urine. Irrigated catheter and got multiple small clots out. Patient contineus to have hematuria at this time. In bed with call light within reach. Bed alarm on.
[2022-02-15] VITALS (8 sets, daily range): BP systolic 126–156; BP diastolic 66–86; PULSE 57–85; TEMP 97.6–98.4
[2022-02-15 06:01] LABS: BASO % 0.1 % (0.0-2.0); EOS # 0.2 K/mm3 (0.0-0.7); EOS % 2.4 % (0.0-4.0); GRAN # 6.7 K/mm3 (1.4-6.5); GRAN % 82.3 % (42.2-75.2); LYMPH # 0.8 K/mm3 (1.2-3.4); LYMPH % 9.8 % (20.0-51.0); MEAN CELL VOLUME 88 fl (80.0-100.0); MEAN CORPUSCULAR HEMOGLOBIN 27 pg (27-31); MEAN CORPUSCULAR HGB CONC 31 g/dl (33.0-37.0); MONO # 0.4 K/mm3 (0.1-0.6); MONO % 4.9 % (1.7-9.3); PLATELET COUNT 186 K/mm3 (130-400); RED BLOOD COUNT 4.07 M/mm3 (4.20-5.60); REDCELL DISTRIBUTION WIDTH-CV 14.1 % (11.5-14.5)
[2022-02-15 06:12] LABS: HEMATOCRIT 35.9 % (42.0-52.0)
[2022-02-15 06:21] LABS: CALCIUM 8.3 mg/dL (8.4-10.2); CREATININE, serum 0.9 mg/dL (0.72-1.25); MAGNESIUM 2.2 mg/dL (1.6-2.6); PHOSPHOROUS 3.2 mg/dL (2.3-4.7); POTASSIUM 3.5 mmol/L (3.5-4.5)
--- NOTE | 2022-02-15 08:54 | NUR ---
PT RESTING IN BED. MORNING MEDICATIONS GIVEN VIA PEG TUBE. SHIFT ASSESSMENT COMPLETED. PT UNABLE TO VERBALIZE NEEDS OR FOLLOW COMMANDS. WILL CONTINUE TO MONITOR.
[2022-02-15 13:29] LABS: COLLECTION METHOD IN
[2022-02-15 13:39] LABS: MUCOUS Present (NOT PRESENT); PH 6 (5-8); SQUAMOUS EPITHELIAL None Seen /hpf (0-10); URINE APPEARANCE Hazy (CLEAR/HAZY); URINE BACTERIA Occasional /hpf (NONE SEEN); URINE BILIRUBIN Negative (NEGATIVE); URINE BLOOD 3+ (NEGATIVE); URINE COLOR Yellow (YELLOW); URINE GLUCOSE Negative (NEGATIVE); URINE KETONE Negative (NEGATIVE); URINE LEUKOCYTE ESTERASE 1+ (NEGATIVE); URINE NITRATE Negative (NEGATIVE); URINE PROTEIN(semi-quant) 1+ (NEGATIVE); URINE RBC >50 /hpf (0-2)
--- NOTE | 2022-02-15 16:03 | NUR ---
NOTIFIED BY TELE THAT PT HAD A 10 BEAT RUN OF VTACH IN THE 130S. GLEN FRANCOIS NOTIFIED.
--- NOTE | 2022-02-15 16:08 | NUR ---
Social Work student faxed updates to Graeme at [facility].
--- NOTE | 2022-02-15 20:00 | NUR ---
Patient is resting in bed, open his eyes spontaneously. Receiving feeding at 78ml/hr and Dextrose 5. Telemetry in place, NSR. 1.5L O2 NC. Catheter mcdonald in place with pink red output. Assessment completed, medications provided. No other needs at this time. Continue monitoring.
[2022-02-16 04:11] VITALS: BP 137/60; PULSE 78; TEMP 98
--- NOTE | 2022-02-16 06:04 | NUR ---
Patient has had an uneventful night. Continue getting his feeding. No issues reported by telemetry. Right now getting the last dose of aciclovir. Report will be given to day RN.
[2022-02-16 06:38] LABS: BASO % 0.1 % (0.0-2.0); EOS # 0.2 K/mm3 (0.0-0.7); EOS % 2.9 % (0.0-4.0); GRAN # 6.1 K/mm3 (1.4-6.5); GRAN % 78.2 % (42.2-75.2); HEMOGLOBIN 10.3 g/dl (13.5-18.0); LYMPH % 12.8 % (20.0-51.0); MEAN CELL VOLUME 91 fl (80.0-100.0); MEAN CORPUSCULAR HEMOGLOBIN 27 pg (27-31); MEAN CORPUSCULAR HGB CONC 30 g/dl (33.0-37.0); MONO # 0.4 K/mm3 (0.1-0.6); MONO % 5.5 % (1.7-9.3); PLATELET COUNT 193 K/mm3 (130-400); RED BLOOD COUNT 3.81 M/mm3 (4.20-5.60); REDCELL DISTRIBUTION WIDTH-CV 14.1 % (11.5-14.5)
[2022-02-16 06:41] LABS: HEMATOCRIT 34.7 % (42.0-52.0)
[2022-02-16 07:03] LABS: ALBUMIN 1.9 gm/dL (3.4-4.8); CALCIUM 7.9 mg/dL (8.4-10.2); CREATININE, serum 0.87 mg/dL (0.72-1.25); MAGNESIUM 1.9 mg/dL (1.6-2.6); PHOSPHOROUS 3.3 mg/dL (2.3-4.7); POTASSIUM 3.6 mmol/L (3.5-4.5)
[2022-02-16 07:38] VITALS: BP 135/66; PULSE 81; TEMP 98.4
--- NOTE | 2022-02-16 08:58 | NUR ---
Pt assessment complete. Pt is laying in bed upon entry, arouses to voice but is unable to communicate with staff. Pt is groaning and attempting to move at times, PRN Tylenol administered for discomfort. Tube feeding dc'd at this time. IVF infusing without issues. Heel protectors in place. Rema RUSHING.
[2022-02-16 11:33] VITALS: BP 118/88; PULSE 73; TEMP 98.6
--- NOTE | 2022-02-16 13:38 | NUR ---
Call made to patient's daughter Keiry. Left voicemail. Just called to check in and see if she had a questions or concerns about the plan of care.
--- NOTE | 2022-02-16 14:52 | NUR ---
Clinical updates faxed to [facility]. Notified nursing facility that physicians are ready for discharge. Juhi with [facility] states she will have the clinical team review the updates and determine if they are able to accept this patient back today.
[2022-02-16 15:29] VITALS: BP 115/71; PULSE 69; TEMP 98.2
--- NOTE | 2022-02-16 15:42 | NUR ---
Patients clinical information faxed to [facility] for authorization to be started to return to [facility].
--- NOTE | 2022-02-16 19:10 | NUR ---
Tube feedings running per orders, pt rested comfortably the rest of the day. Hodgson DD. Pt was incontinent of some loose stools today. Family at bedside
[2022-02-16 20:25] VITALS: BP 110/74; PULSE 70; TEMP 98.5
--- NOTE | 2022-02-16 22:00 | NUR ---
Patient open his yes and looks at me while I enter into the room and talk to him. Alert but unable to verbalize. Telemetry in place, NSR. 1L o2 NC. Receiving feeding 78 ml/hr. Catheter mcdonald in place with sharri output. Assessment completed, medications provided. No other needs at this time. Call light within reach.
[2022-02-16 23:59] VITALS: BP 133/66; PULSE 65; TEMP 97.8
[2022-02-17 03:52] VITALS: BP 115/61; PULSE 62; TEMP 97.9
--- NOTE | 2022-02-17 06:01 | NUR ---
Patient has been stable along the night. VS WNL. Continue receiving feeding and D5. Report will be given to day RN.
[2022-02-17 08:07] VITALS: BP 141/59; PULSE 71; TEMP 98.1
--- NOTE | 2022-02-17 08:55 | NUR ---
Shift assessment complete. Pt resting in bed. Opens eyes to speech but does not follow commands, nonverbal. PEG tube w/o s/s complication, feeding complete, PEG flushed per orders. Large stage 2 ulcer to left buttock and small quarter-sized stage 2 ulcer to right buttock. Mepilex placed over both. Hodgson w/red output and small clots. Hospitalist aware. Pt incontinent of watery brown stool. Bed bath and bed change done. Continuing to monitor.
--- NOTE | 2022-02-17 10:13 | NUR ---
Received voicemail from daughter, Keiry. I called her back this morning. We discussed his current status and possible discharge later today. She is okay with the plan for LTC and had questions about his tube feedings. I answered them as best I could but also referred her to the tank builder helper at [facility] or here.I also offered to call her back once there is a definate plan for discharge or not.
[2022-02-17 11:47] VITALS: BP 131/62; PULSE 69; TEMP 98.3
--- NOTE | 2022-02-17 15:26 | NUR ---
MANSOOR spoke with the patients daughter Keiry who was upset that the patient got insulin after receiving dextrose the other day. Keiry states that she would rather get a phone call from the patients RN and he go tomorrow because "its getting late". Informed the patients RN that the patients daughter would like a clinical update. GLEN notified. Graeme with [facility] states that the latest they would be able to pick the patient up is 1530. Attempt made to contact Graeme to provide an update and arrange transfer for first thing in the am. Message left.
[2022-02-17 15:31] VITALS: BP 112/54; PULSE 70; TEMP 98.2
--- NOTE | 2022-02-17 19:15 | NUR ---
PT RESTING IN BED QUIETLY TODAY. TUBE FEEDING STARTED PER ORDERS. SCHEDULED TO BE PICKED UP BY [facility] TOMORROW MORNING.
[2022-02-17 20:11] VITALS: BP 112/72; PULSE 78; TEMP 97.3
--- NOTE | 2022-02-17 22:41 | NUR ---
Patient assessed around 2009. Alert, disoriented, non-verbal. No outward s/sx of pain or discomfort at this time. Peripheral IV to right forearm with IV fluids running per orders. INT to right forearm. Occasional moist cough. On oxygen at 1 L/min via NC. LS CTA. HRR. Telemetry in place. BSAx4. Tube feeding at 7 cm walker, with feeding running per orders. Patient incontinent of urine. Has sheering to bottom, mepilex in place. External male catheter put in place for skin protection. In bed with call light within reach. Bed alarm on.
[2022-02-17 23:40] VITALS: BP 122/67; PULSE 62; TEMP 97.7
[2022-02-18 04:54] VITALS: BP 126/71; PULSE 74; TEMP 98.5
--- NOTE | 2022-02-18 05:27 | NUR ---
Patient repositioned every two hours during the night. No outward s/sx of pain or discomfort noted. Continues on tube feedings per orders. External male catheter in place, working well to prevent extra moisture to bottom. Bottom has open areas to bottom from sheering. In bed with call light within reach. Bed alarm on.
[2022-02-18 06:26] LABS: BASO % 0.2 % (0.0-2.0); EOS # 0.2 K/mm3 (0.0-0.7); EOS % 2.7 % (0.0-4.0); GRAN # 7.2 K/mm3 (1.4-6.5); GRAN % 80.5 % (42.2-75.2); LYMPH # 1.1 K/mm3 (1.2-3.4); LYMPH % 12.1 % (20.0-51.0); MEAN CELL VOLUME 87 fl (80.0-100.0); MEAN CORPUSCULAR HEMOGLOBIN 27 pg (27-31); MEAN CORPUSCULAR HGB CONC 31 g/dl (33.0-37.0); MEAN PLATELET VOLUME 12.5 fl (7.4-10.4); MONO # 0.3 K/mm3 (0.1-0.6); MONO % 3.7 % (1.7-9.3); PLATELET COUNT 251 K/mm3 (130-400); RED BLOOD COUNT 4.15 M/mm3 (4.20-5.60); REDCELL DISTRIBUTION WIDTH-CV 13.8 % (11.5-14.5)
[2022-02-18 06:40] LABS: HEMATOCRIT 35.9 % (42.0-52.0)
[2022-02-18 06:49] LABS: CALCIUM 8.2 mg/dL (8.4-10.2); CREATININE, serum 0.92 mg/dL (0.72-1.25)
[2022-02-18 07:43] VITALS: BP 155/89; PULSE 65; TEMP 98.3
[2022-02-18] MEDS ORDERED: OMNICEF 300MG300 MG PO (08:57)
[2022-02-18] MEDS ORDERED: LOPRESSOR 225 MG/TAB PO (09:02)
[2022-02-18] MEDS ORDERED: EFFEXOR XR75 MG/CAP PO (09:05)
[2022-02-18] MEDS ORDERED: PROBIOTIC ACID1 EAC3 PO (09:06)
[2022-02-18] MEDS ORDERED: ARICEPT10 MG PO (09:06)
--- NOTE | 2022-02-18 09:35 | NUR ---
Patients clinical updates and updated discharge orders faxed to Graeme at [facility]. PAtient arranged to be picked up at 0930. Patients RN notified in addition to the patients daughter.
--- NOTE | 2022-02-18 10:51 | NUR ---
Report given to [facility] at this time. RFA IV's dc'd catheter tips intact. Pt transferred to wheelchair via du lift.
== END 2022-02-18 10:54 | DRG 193 ==
LOC: COL.ER 09:22 → MEDICAL 12:15 → EDBEDREQTM 13:20 → MEDICAL 21:00
PROVIDERS: Emergency Medicine; Family Medicine; Physician Assistant; ADMIT Internal Medicine
DX: J18.9 Pneumonia, unspecified organism (principal); J96.01 Acute respiratory failure with hypoxia; G93.41 Metabolic encephalopathy; N17.9 Acute kidney failure, unspecified; E87.2 Acidosis; E87.0 Hyperosmolality and hypernatremia; G95.89 Other specified diseases of spinal cord; F03.90 Unspecified dementia, unspecified severity, without behavioral disturbance, psychotic disturbance, mood disturbance, and anxiety; I10 Essential (primary) hypertension; E78.5 Hyperlipidemia, unspecified; I25.10 Atherosclerotic heart disease of native coronary artery without angina pectoris; N40.0 Benign prostatic hyperplasia without lower urinary tract symptoms; K59.00 Constipation, unspecified; H10.9 Unspecified conjunctivitis; F32.A Depression, unspecified; M48.02 Spinal stenosis, cervical region; E11.65 Type 2 diabetes mellitus with hyperglycemia; E87.6 Hypokalemia; I48.91 Unspecified atrial fibrillation; N30.91 Cystitis, unspecified with hematuria; Z20.822 Contact with and (suspected) exposure to COVID-19; Z86.73 Personal history of transient ischemic attack (TIA), and cerebral infarction without residual deficits; Z79.82 Long term (current) use of aspirin; Z23 Encounter for immunization
CPT/HCPCS: 99223-AI; 99232-AI; 99239; C9113; J0133; J0456; J0696; J1644; J1815; J3370; J7030; J7050; J7070; J7120; Q9967

== ENCOUNTER 2022-03-15 11:53 | Emergency (ER) | payer MEDICARE ==
[~2022-03-15] VITALS: Ht 177.8 cm; Wt 86.4 kg
[~2022-03-15 11:53] MED LIST changes: +ARICEPT10 MG PO; +EFFEXOR XR75 MG/CAP PO; +ISOSOURCE 1.51000 M1; +LIPITOR 80MG80 MG PO; +MIRALAX PA17 GM/Dose PO; +OMNICEF 300MG300 MG PO; +PLAVIX 75MG TAB75 MG PO; +PROBIOTIC ACID1 EAC3 PO; +TRANSDERM-0.5 MG/21 TD; +TYLEINFANT PO
[2022-03-15 12:51] LABS: BASO % 0.1 % (0.0-2.0); EOS # 0.1 K/mm3 (0.0-0.7); EOS % 0.5 % (0.0-4.0); GRAN # 10.4 K/mm3 (1.4-6.5); GRAN % 85.6 % (42.2-75.2); HEMATOCRIT 40.7 % (42.0-52.0); HEMOGLOBIN 12.6 g/dl (13.5-18.0); LYMPH % 7.9 % (20.0-51.0); MEAN CELL VOLUME 88 fl (80.0-100.0); MEAN CORPUSCULAR HEMOGLOBIN 27 pg (27-31); MEAN CORPUSCULAR HGB CONC 31 g/dl (33.0-37.0); MEAN PLATELET VOLUME 13.6 fl (7.4-10.4); MONO # 0.7 K/mm3 (0.1-0.6); MONO % 5.6 % (1.7-9.3); PLATELET COUNT 189 K/mm3 (130-400); RED BLOOD COUNT 4.61 M/mm3 (4.20-5.60); REDCELL DISTRIBUTION WIDTH-CV 15.1 % (11.5-14.5)
[2022-03-15 13:08] LABS: ALBUMIN 2.5 gm/dL (3.4-4.8); BILIRUBIN,TOTAL 0.5 mg/dL (0.2-1.2); CREATININE, serum 1.19 mg/dL (0.72-1.25); POTASSIUM 4.4 mmol/L (3.5-4.5)
[2022-03-15 13:48] LABS: COLLECTION METHOD CLEAN CATCH
[2022-03-15 14:00] LABS: MUCOUS Present (NOT PRESENT); PH 5 (5-8); SQUAMOUS EPITHELIAL 0-2 /hpf (0-10); URINE APPEARANCE Clear (CLEAR/HAZY); URINE BACTERIA None Seen /hpf (NONE SEEN); URINE BILIRUBIN Negative (NEGATIVE); URINE BLOOD Negative (NEGATIVE); URINE COLOR Yellow (YELLOW); URINE GLUCOSE 3+ (NEGATIVE); URINE KETONE Negative (NEGATIVE); URINE LEUKOCYTE ESTERASE Negative (NEGATIVE); URINE NITRATE Negative (NEGATIVE); URINE PROTEIN(semi-quant) Negative (NEGATIVE); URINE RBC 0-2 /hpf (0-2); URINE UROBILINOGEN Negative (NEGATIVE)
[2022-03-15 15:15] VITALS: BP 140/76; PULSE 96; TEMP 99
== END 2022-03-15 15:15 | disposition home or self-care (01) ==
LOC: COL.ER 11:53
PROVIDERS: Family Medicine
DX: R41.82 Altered mental status, unspecified (principal); Z86.73 Personal history of transient ischemic attack (TIA), and cerebral infarction without residual deficits; Z20.822 Contact with and (suspected) exposure to COVID-19
CPT/HCPCS: J1815; J7030

== ENCOUNTER 2022-03-17 11:38 | Inpatient (IN) | payer MEDICARE ==
[~2022-03-17] VITALS: Ht 20.3 cm; Wt 90.9 kg
[2022-03-17 12:15] LABS: BASO % 0.1 % (0.0-2.0); EOS % 0.1 % (0.0-4.0); GRAN # 10.4 K/mm3 (1.4-6.5); GRAN % 88.7 % (42.2-75.2); HEMATOCRIT 37.8 % (42.0-52.0); HEMOGLOBIN 11.8 g/dl (13.5-18.0); LYMPH # 0.8 K/mm3 (1.2-3.4); LYMPH % 6.6 % (20.0-51.0); MEAN CELL VOLUME 87 fl (80.0-100.0); MEAN CORPUSCULAR HEMOGLOBIN 27 pg (27-31); MEAN CORPUSCULAR HGB CONC 31 g/dl (33.0-37.0); MONO # 0.4 K/mm3 (0.1-0.6); MONO % 3.8 % (1.7-9.3); PLATELET COUNT 173 K/mm3 (130-400); RED BLOOD COUNT 4.33 M/mm3 (4.20-5.60); REDCELL DISTRIBUTION WIDTH-CV 15.1 % (11.5-14.5)
[2022-03-17 12:29] LABS: ALBUMIN 2.1 gm/dL (3.4-4.8); BILIRUBIN,TOTAL 0.4 mg/dL (0.2-1.2); CALCIUM 8.4 mg/dL (8.4-10.2); CREATININE, serum 1.26 mg/dL (0.72-1.25); POTASSIUM 3.9 mmol/L (3.5-4.5); TOTAL PROTEIN 6.6 gm/dL (6.2-8.1)
[2022-03-17 12:47] LABS: COLLECTION METHOD CATHETER
[2022-03-17 12:55] LABS: MUCOUS Present (NOT PRESENT); PH 5 (5-8); SQUAMOUS EPITHELIAL 0-2 /hpf (0-10); URINE APPEARANCE Hazy (CLEAR/HAZY); URINE BACTERIA None Seen /hpf (NONE SEEN); URINE BILIRUBIN Negative (NEGATIVE); URINE BLOOD Negative (NEGATIVE); URINE COLOR Yellow (YELLOW); URINE GLUCOSE 3+ (NEGATIVE); URINE KETONE Negative (NEGATIVE); URINE LEUKOCYTE ESTERASE Negative (NEGATIVE); URINE NITRATE Negative (NEGATIVE); URINE PROTEIN(semi-quant) Negative (NEGATIVE); URINE RBC 0-2 /hpf (0-2); URINE UROBILINOGEN Negative (NEGATIVE)
[2022-03-17] MEDS ORDERED: LANTUS100 U/ML SQ (14:15)
[2022-03-17] MEDS ORDERED: HUMALOG PEN100 U/ML SQ (14:16)
[2022-03-17 15:48] VITALS: BP 116/54; PULSE 89; TEMP 98
--- NOTE | 2022-03-17 18:02 | NUR ---
Met with patients son and had other son Jose De Dios and daughter Keiry on speakerphone. Confirmed they talked about DNR with the physician and discussed their goals of care. Clarified what palliative care and hospice can provide and answered questions about what hospice is and where the patient can receive those services. Family decided to continue talking about it tonight and to talk with me again tomorrow. Offered my contact information as well.
[2022-03-17 20:10] VITALS: BP 149/64; PULSE 84; TEMP 98.1
[2022-03-18 00:09] VITALS: BP 114/84; PULSE 87; TEMP 98.2
[2022-03-18 04:25] VITALS: BP 149/68; PULSE 94; TEMP 98.1
[2022-03-18 07:55] VITALS: BP 147/105; PULSE 77; TEMP 98
--- NOTE | 2022-03-18 09:44 | NUR ---
Spoke with patient's daughter, Keiry on the phone with [employer] [employer]. Keiry expressed concern about tube feeds and antibiotics. Attempted to explain care team concerns about continued tube feeds and likelihood of repeat admissions and pneumonia. Keiry asked for time to process this and offered to have family meeting today since brother Navdeep is visiting from [place]. She agreed and is arranging a time with both brothers to be here.
--- NOTE | 2022-03-18 09:48 | NUR ---
This SW and palliative care RN called patient's daughter to follow up on family meeting from last night. Keiry notified by RN that the patient's aspirations are being caused by the tub feeds and that his body is not responding to the antibiotics that are being given. Encouraged Keiry to reach out to her two brothers to arrange for the three of them to meet at the hospital and have a meeting with Marie, myself, and business development consultant to talk with all three of them together. Keiry is in agreement with this plan and will call Marie with a meeting time.
[2022-03-18 10:06] LABS: MAGNESIUM 2.2 mg/dL (1.6-2.6); PHOSPHOROUS 3.9 mg/dL (2.3-4.7)
--- NOTE | 2022-03-18 10:30 | NUR ---
Family meeting planned for 1pm today. Family requests hospitalist and ore dressing engineer be present. SW and care team notified.
[2022-03-18 11:14] VITALS: BP 142/76; PULSE 90; TEMP 98.3
--- NOTE | 2022-03-18 13:27 | NUR ---
Family meeting held with patients children, Navdeep, Veryl, and Keiry, as well as 2 grandchildren. MANSOOR, primary RN, and hospitalist also participated. Family decided on hospice care with [facility]. Call placed to Diego with [facility] per family requests; he is enroute to come talk with family. MANSOOR to arrange transportation back to [facility].
--- NOTE | 2022-03-18 13:32 | NUR ---
FAMILY MEETING JUST OCCURED WHERE FAMILY DECIDED TO GO HOSPICE. THE PATIENT WILL TRANSITION TO COMFORT CARE IN THE HOSPITAL UNTIL TRANSFER BACK TO [facility] WITH [facility]. FLUIDS THAT WERE HANGING IN THE ROOM WELL THE ZITHROMAX WERE REMOVED, AND PATIENT MADE COMFORTABLE. SOCIAL SERVICES MANAGER CONTACTED FOR CANCELLATION OF TUBE FEEDS. FAMILY DENIES ANY QUESTIONS OR CONCERNS AT THIS TIME. SOCIAL WORK WELL PALLIATIVE CARE WILL BE COLLABORATING TO MAINTAIN PATIENT CARE DURING THE REST OF HIS STAY. NO OTHER CONCERNS AT THIS TIME.
--- NOTE | 2022-03-18 14:25 | NUR ---
MANSOOR attended family meeting with patient's daughter Keiry, son Navdeep, son Jose and granddaughter. Also in attendance is MD, patient's RN, and palliative care RN. Family verbalized agreement that the patient should return to [facility] with Hospice services. They would like to go with [facility]. All questions answered by MD and palliative care RN. Offered family for Diego from [facility] to come in a talk with them which they verbalized their desire for. Informed the family that EMS would be contacted for transportation. Graeme with [facility] contacted and notified of the above. EMS contacted and arangement made for a 1500 supervisor picking crew time. Discharge orders faxed to [facility]. Discharge plan: [facility] w/ [facility] @1500
[2022-03-18] MEDS ORDERED: TRANSDERM-0.5 MG/21 TD (14:44)
[2022-03-18] MEDS ORDERED: DULCOLAX S10 MG/SUPP RC (14:44)
[2022-03-18] MEDS ORDERED: SYSTANE 0.4%-0.1 SOL OU (14:44)
[2022-03-18] MEDS ORDERED: ATIVAN 1MG T1 MG/TAB PO (14:46)
[2022-03-18] MEDS ORDERED: ROXANOL 20MG20 MG/ML SL (14:46)
--- NOTE | 2022-03-18 15:05 | NUR ---
PT RETURNED TO [facility] ON HOSPICE. TAKEN AT THIS TIME VIA EMS.
== END 2022-03-18 15:05 | disposition hospice, inpatient (51) | DRG 871 ==
LOC: COL.ER 11:38 → MEDICAL 14:00
PROVIDERS: Internal Medicine; Personal Emergency Response Attendant; ADMIT Student in an Organized Health Care Education/Training Program
DX: A41.9 Sepsis, unspecified organism (principal); J69.0 Pneumonitis due to inhalation of food and vomit; G95.89 Other specified diseases of spinal cord; G93.49 Other encephalopathy; F03.90 Unspecified dementia, unspecified severity, without behavioral disturbance, psychotic disturbance, mood disturbance, and anxiety; M48.00 Spinal stenosis, site unspecified; I10 Essential (primary) hypertension; E78.5 Hyperlipidemia, unspecified; I25.10 Atherosclerotic heart disease of native coronary artery without angina pectoris; N40.0 Benign prostatic hyperplasia without lower urinary tract symptoms; E11.65 Type 2 diabetes mellitus with hyperglycemia; F32.A Depression, unspecified; Z20.822 Contact with and (suspected) exposure to COVID-19; Z87.820 Personal history of traumatic brain injury; Z79.4 Long term (current) use of insulin; Z79.82 Long term (current) use of aspirin; Z74.01 Bed confinement status; Z51.5 Encounter for palliative care; Z23 Encounter for immunization
CPT/HCPCS: 99223-AI; 99239; J0456; J0696; J1644; J1815; J7030; J7050